=== PATIENT | female | born 1960 | race Caucasian/White ===

== ENCOUNTER → 2016-07-12 | Outpatient (CLI) | payer OTHER | END | disposition home or self-care (01) | LOC: CFH 14:32 | PROVIDERS: ATTEND Student in an Organized Health Care Education/Training Program | DX: Z12.31 Encounter for screening mammogram for malignant neoplasm of breast (principal) | CPT/HCPCS: 77063; G0202 ==

== ENCOUNTER 2019-05-06 15:09 | Outpatient (CLI) | payer OTHER ==
[2019-05-06] MEDS ORDERED: METF1000 PO (15:36)
== END 2019-05-06 23:59 | disposition home or self-care (01) ==
LOC: STAR 15:09 → EDSTATUS 15:30 → STAR 23:59
PROVIDERS: ATTEND Surgery
DX: Z01.812 Encounter for preprocedural laboratory examination (principal); K80.10 Calculus of gallbladder with chronic cholecystitis without obstruction
CPT/HCPCS: 93005

== ENCOUNTER 2019-05-12 13:27 | Day surgery (SDC) | payer OTHER ==
[~2019-05-12] VITALS: Ht 170.2 cm; Wt 94.7 kg
[~2019-05-12 13:27] MED LIST: METF1000 PO
[2019-05-12 13:53] VITALS: BP 152/77
[2019-05-12] MEDS ORDERED: LACTATED RINGERS 1,000 ML IV SCH ×2 (14:12→16:29)
[2019-05-12] MEDS ORDERED: MIDAZOLAM 1 MG/ML, 2ML ONE (15:15)
[2019-05-12] MEDS ORDERED: FENTANYL PF 250 MCG/5ML ONE (15:15)
[2019-05-12] MEDS ORDERED: PROPOFOL 10 MG/ML, 20ML ONE (15:16)
[2019-05-12] MEDS ORDERED: ONDANSETRON 2MG/ML, 2ML ONE (15:27)
[2019-05-12] MEDS ORDERED: DEXAMETHASONE 4 MG/ML, 1ML ONE (15:27)
[2019-05-12] MEDS ORDERED: ROCURONIUM 10 MG/ML,10ML ONE (15:27)
[2019-05-12] MEDS ORDERED: CEFAZOLIN 1,000 MG ONE (15:27)
[2019-05-12] MEDS ORDERED: SUCCINYLCHOLINE 20 MG/ML, 10ML ONE (15:27)
[2019-05-12] MEDS ORDERED: EPINEPHRINE 1 MG/ML, 1ML ONE (15:44)
[2019-05-12] MEDS ORDERED: BUPIVACAINE/PF 0.5% ONE (15:44)
[2019-05-12] MEDS ORDERED: METOCLOPRAMIDE 5 MG/ML, 2ML IV PRN (16:30)
[2019-05-12] MEDS ORDERED: MEPERIDINE/PF 25MG/0.5ML IVPush PRN (16:30)
[2019-05-12] MEDS ORDERED: DIAZEPAM 5 MG/ML, 2ML IV PRN ×2 (16:30)
[2019-05-12] MEDS ORDERED: KETOROLAC 30 MG/1 ML IV PRN (16:30)
[2019-05-12] MEDS ORDERED: HYDROmorphone 1 MG/ML, 1ML INJ IV PRN (16:30)
[2019-05-12] MEDS ORDERED: hydrALAzine 20 MG/ML, 1ML IV PRN (16:30)
[2019-05-12] MEDS ORDERED: OXYcodone 5 MG/5 ML ORAL.SOL UDC PO PRN (16:30)
[2019-05-12] MEDS ORDERED: PROMETHAZINE 25 MG/ML, 1ML IM PRN (16:30)
[2019-05-12] MEDS ORDERED: ONDANSETRON 2MG/ML, 2ML IVPush PRN ×2 (16:30)
[2019-05-12] MEDS ORDERED: ALBUTEROL SULFATE 2.5 MG/3 ML NPPB PRN (16:30)
[2019-05-12] MEDS ORDERED: LABETALOL 5MG/ML, 20ML IV PRN (16:30)
[2019-05-12] MEDS ORDERED: morphine SULFATE 10 MG/ML, 1ML IVPush PRN (16:30)
[2019-05-12] MEDS ORDERED: PROMETHAZINE 25 MG/ML, 1ML IV PRN (16:30)
[2019-05-12] MEDS ORDERED: FENTANYL PF 100 MCG/2ML ONE (16:41)
[2019-05-12] MEDS ORDERED: OXYcodone 5 MG/5 ML ORAL.SOL UDC ONE (16:41)
[2019-05-12] MEDS: FENTANYL PF 100 MCG/2ML IV PRN ×2 (16:44→16:53)
[2019-05-12] MEDS ORDERED: HYDROmorphone 1 MG/ML, 1ML INJ ONE (17:10)
== END 2019-05-12 18:35 | disposition home or self-care (01) ==
LOC: OR 13:27
PROVIDERS: ATTEND Surgery
DX: K80.10 Calculus of gallbladder with chronic cholecystitis without obstruction (principal); E11.9 Type 2 diabetes mellitus without complications; E66.3 Overweight; Z68.33 Body mass index [BMI] 33.0-33.9, adult; Z79.84 Long term (current) use of oral hypoglycemic drugs
CPT/HCPCS: 47562; 82962; 88304; J0171; J0330; J0690; J1100; J1170; J1885; J2250; J2405; J2704; J3010; J7120